=== PATIENT | female | born 1990 | race Caucasian/White ===

== ENCOUNTER 2021-02-01 14:37 | Emergency (ER) | payer OTHER ==
[~2021-02-01 14:37] MED LIST: FLEXERIL 10 MG10 MG PO; IBUPROFEN600 MG PO
== END 2021-02-01 16:46 | disposition left against medical advice (07) ==
LOC: ER1 14:37
DX: Z53.21 Procedure and treatment not carried out due to patient leaving prior to being seen by health care provider (principal)

== ENCOUNTER 2021-02-04 20:38 | Emergency (ER) | payer OTHER ==
[2021-02-04] MEDS ORDERED: DOXYCYCLINE HY100 MG PO (22:37)
[2021-02-09 22:11] LABS: CHLAMYDIA TRACHOMATIS, NAA Positive (Negative); NEISSERIA GONORRHOEAE, NAA Positive (Negative)
== END 2021-02-04 23:30 | disposition home or self-care (01) ==
LOC: ER1 20:38
PROVIDERS: Otolaryngology
DX: N89.8 Other specified noninflammatory disorders of vagina (principal); E03.9 Hypothyroidism, unspecified; F17.210 Nicotine dependence, cigarettes, uncomplicated
CPT/HCPCS: 81001; 84703; 87086; 99283; J0696

== ENCOUNTER 2021-04-18 01:15 | Emergency (ER) | payer SELFPAY ==
[~2021-04-18 01:15] MED LIST changes: +DOXYCYCLINE HY100 MG PO
[2021-04-18] MEDS ORDERED: ZOFRAN ODT 4 MG4 MG SL (06:28)
[2021-04-18] MEDS ORDERED: IBUPROFEN600 MG PO (06:28)
== END 2021-04-18 06:35 | disposition home or self-care (01) ==
LOC: ER1 01:15
DX: J06.9 Acute upper respiratory infection, unspecified (principal); Z20.822 Contact with and (suspected) exposure to COVID-19
CPT/HCPCS: 87081; 87880; 99283; U0003

== ENCOUNTER 2021-04-20 06:07 | Emergency (ER) | payer BC ==
[~2021-04-20 06:07] MED LIST changes: +ZOFRAN ODT 4 MG4 MG SL
[2021-04-20 06:43] LABS: HEMOGLOBIN 13.5 gm/dl (12.3-15.3); RED BLOOD COUNT 4.29 M/UL (4.00-5.10); WHITE BLOOD COUNT 18.9 K/UL (4.5-11.0)
[2021-04-20] MEDS ORDERED: AUGMENTIN 875-1 EACH PO (13:16)
== END 2021-04-20 13:33 | disposition home or self-care (01) ==
LOC: ER1 06:07
PROVIDERS: Physician Assistant Medical
DX: J02.9 Acute pharyngitis, unspecified (principal); R59.0 Localized enlarged lymph nodes
CPT/HCPCS: 70491; 85025; 86403; 96374; 99284; J1885; Q9967